=== PATIENT | female | born 1955 | race Caucasian/White ===

== ENCOUNTER → 2017-07-22 | Outpatient (CLI) | payer OTHER ==
[~2017-07-22] MED LIST: ALBU8.5H5 INH; CLON-365 PO; CLON0.1T PO; FLUO20TA25 PO; OXYC1TAB7 PO; PRAV40TA2 PO; TRAZ150T62 PO
== END | disposition home or self-care (01) ==
LOC: CFH 10:49
PROVIDERS: ATTEND Internal Medicine
DX: J44.9 Chronic obstructive pulmonary disease, unspecified (principal); I25.10 Atherosclerotic heart disease of native coronary artery without angina pectoris
CPT/HCPCS: 71250

== ENCOUNTER → 2018-06-27 | Outpatient (CLI) | payer MEDICARE ==
[~2018-06-27] MED LIST changes: -CLON-365 PO; -CLON0.1T PO; +CLON0.1T22 PO; +CLON1TAB11 PO
== END | disposition home or self-care (01) ==
LOC: CFH 14:36
PROVIDERS: ATTEND Internal Medicine
DX: J43.2 Centrilobular emphysema (principal)
CPT/HCPCS: 71250

== ENCOUNTER → 2019-05-14 | Outpatient (CLI) | payer MEDICARE | END | disposition home or self-care (01) | LOC: PETCFH 11:39 | PROVIDERS: ATTEND Nurse Practitioner | DX: J84.10 Pulmonary fibrosis, unspecified (principal) | CPT/HCPCS: 78815; A9552 ==